=== PATIENT | male | born 1990 | race Caucasian/White ===

== ENCOUNTER 2016-05-09 06:28 | Emergency (ER) | payer MEDICAID, SELFPAY ==
[2016-05-09 08:49] LABS: MEAN CORPUSCULAR HEMOGLOBIN 31.2 pg (27.0-33.0); MEAN CORPUSCULAR HGB CONC 35.7 g/dl (32.0-36.5); MEAN CORPUSCULAR VOLUME 87.4 fl (80.0-96.0); WHITE BLOOD COUNT 7.6 K/mm3 (4.0-10.0)
[2016-05-09 09:10] LABS: ALBUMIN 4.5 GM/DL (3.2-5.2); ALBUMIN/GLOBULIN RATIO 1.25 (1.00-1.93); ALKALINE PHOSPHATASE 100 U/L (45-117); ALT/SGPT 80 U/L (12-78); ANION GAP 13 MEQ/L (8-16); AST/SGOT 38 U/L (15-37); BILIRUBIN,DIRECT < 0.1 MG/DL (0.0-0.2); BILIRUBIN,TOTAL 0.4 MG/DL (0.2-1.0); BLOOD UREA NITROGEN 5 MG/DL (7-18); CALCIUM LEVEL 9.1 MG/DL (8.5-10.1); CARBON DIOXIDE LEVEL 24 MEQ/L (21-32); CHLORIDE LEVEL 104 MEQ/L (98-107); CREATININE FOR GFR 1.03 MG/DL (0.70-1.30); GLOMERULAR FILTRATION RATE > 60.0 (>60); GLUCOSE, FASTING 119 MG/DL (70-105); POTASSIUM SERUM 4.2 MEQ/L (3.5-5.1); SODIUM LEVEL 141 MEQ/L (136-145); TOTAL PROTEIN 8.1 GM/DL (6.4-8.2)
[2016-05-09 09:44] LABS: AMPHETAMINES LEVEL URINE NEGATIVE (NEGATIVE); BENZODIAZEPINES URINE NEGATIVE (NEGATIVE); COCAINE METABOLITE URINE NEGATIVE (NEGATIVE); CONTROL LINE INT CTR LINE PRESENT; METHADONE URINE NEGATIVE (NEGATIVE); OPIATES URINE NEGATIVE (NEGATIVE); TRICYCLIC ANTIDEPRESS URINE NEGATIVE (NEGATIVE)
--- NOTE | 2016-05-09 13:17 | EDDOCDS ---
Nurse's Notes [facility] Name: Blake Crawford Age: 26 yrs Sex: Male : 1990 Arrival Date: 05/09/2016 Time: 06:28 Bed U3 Private MD: Diagnosis: Essential (primary) hypertension-possibly related to ingestion;Alcohol use, unspecified with intoxication Presentation: 05/09 06:37 Presenting complaint: Patient states: He does not remember making comments on Facebook lf1 about wanting to harm himself, states he was drinking heavily (vodka and Mountain Dew) and does not remember much of the evening. Denies SI/HI at this time. Pt brought in on 941 by NICOL Neumann after a friend called concerned about comments patient made on Facebook about wanting to harm himself. Mental Health Triage Level: Level 2: The patient was brought to the ED for evaluation because of a legal pickup order. Adult Sepsis Screening: The patient does not have new or worsening altered mentation. Patient's respiratory rate is less than 22. Systolic blood pressure is greater than 100. Patient has a qSOFA score of 0- Negative Sepsis Screen. Suicide/Homicide risk assessment- The patient admits to and/or has been reported to be having suicidal ideations. Status: Patient is not a services rep or dependent. Transition of care: patient was not received from another setting of care. 06:37 Acuity: MARY Level 3 lf1 06:37 Method Of Arrival: Police Car lf1 Triage Assessment: 06:43 General: Appears in no apparent distress, comfortable, Behavior is cooperative. Pain: lf1 Denies pain. Pt Declines HIV testing. The patient is triaged at the bedside. See Assessment in Nurses Notes section of ED record. Neurological: Level of Consciousness is awake, alert, Oriented to person, place, time. EENT: No deficits noted. Cardiovascular: Chest pain is denied. Respiratory: Respiratory effort is even, unlabored, Denies shortness of breath. GI: Denies nausea, vomiting. Derm: Skin is normal. Musculoskeletal: No deficits noted. Injury Description: No known injury. Historical: - Allergies: No known drug Allergies; - Home Meds: 1. none - PMHx: Prostate problems; - PSHx: none; - Social history: Smoking status: Patient states was never smoker of tobacco. No barriers to communication noted, The patient speaks fluent Citizen Of [place], Speaks appropriately for age, Preferred Language: Citizen Of [place]. - Family history: Not pertinent. - : The pt / caregiver states he / she is not on anticoagulants. Home medication list is obtained from the patient. - Exposure Risk Screening:: None identified. Screenin:46 Screening information is obtained from the patient. Fall risk: No risks identified. lf1 Assistance ADL's: requires no assistance with activities of daily living. Abuse/DV Screen: The patient / caregiver reports he/she is: not in a situation that causes fear, pain or injury. Nutritional screening: No deficits noted. Advance Directives: Currently, there is. Advance Directives: Currently, there is no health care proxy. home support is adequate. Assessment: 06:56 General: Appears in no apparent distress, comfortable, well nourished, well groomed, kas2 Behavior is cooperative, Smells of alcohol. Pain: Denies pain. Neurological: Level of Consciousness is awake, alert, Oriented to person, place, time. Cardiovascular: Rhythm is regular. Respiratory: Airway is patent Respiratory effort is even, unlabored, Respiratory pattern is regular, symmetrical, Breath sounds are clear bilaterally. Derm: Skin is intact, Skin is dry, Skin is pink, warm & dry. Skin temperature is warm. 08:36 Reassessment: Patient alert and cooperative - denies any pain. Very anxious. . kcs 09:04 Reassessment: Patient sitting up on the side of the stretcher - pleasant and kcs cooperative. Cheeks flushed. Denies any pain. Still unable to give urine specimen. IV infusing and patient retaining po water and sherri hector. Security observing.. 11:15 Adult Sepsis Screening: The patient does not have new or worsening altered mentation. ms2 Patient's respiratory rate is less than 22. Systolic blood pressure is greater than 100. Patient has a qSOFA score of 0- Negative Sepsis Screen. General: Appears in no apparent distress, poor eye contact. Behavior is cooperative. Neurological: Level of Consciousness is awake, alert, obeys commands. Respiratory: No deficits noted. Airway is patent Respiratory effort is even, unlabored, Respiratory pattern is regular, symmetrical. GI: Abdomen is obese. Derm: Skin is pink, warm & dry. Musculoskeletal: Range of motion intact in all extremities. 12:05 General: Appears in no apparent distress, Behavior is cooperative. Neurological: No ms2 deficits noted. Respiratory: Respiratory effort is even, unlabored. Derm: Skin is pink, warm & dry. 13:05 Adult Sepsis Screening: The patient does not have new or worsening altered mentation. ms2 Patient's respiratory rate is less than 22. Systolic blood pressure is greater than 100. Patient has a qSOFA score of 0- Negative Sepsis Screen. General: Appears in no apparent distress. Neurological: Level of Consciousness is awake, alert, obeys commands. Respiratory: Airway is patent Respiratory effort is even, unlabored, Respiratory pattern is regular, symmetrical. Derm: Skin is pink, warm & dry. Musculoskeletal: Range of motion intact in all extremities. Mental Health Eval: 06:55 Referral Information: Evaluation referral is generated by a police agency: [facility] on cl 9.41.. The patient was referred for evaluation because Pt allegedly made suicidal comments on Facebook last night, friend contacted Police. Pt states he does not recall making any statements, reports he was intoxicated last night and has no memory of making any threats or comments.. 09:45 Mental health consult is initiated at 09:45. Status: The patient is not a ca services rep or dependent. [facility]: The patient is not an established patient of [facility]. 10:36 Subjective: The patients chief complaint is Pt denies SI or HI, says he does not ca remember making any FB post last night but was highly intoxicated. Was celebrating New 's with friends and roommates. Pt unaware of who called police or why. . 11:35 Subjective: Delusions are denied. Patient's mood is appropriate. Hallucinations are ca denied. Spoke with pt's mother Sherri ([phone]) who states no concerns regarding pt's safety. She confirms that pt has been living with roommates for some time but family is in regular contact with pt. Pt has never been admitted to psychiatric unit and has never been hospitalized. Pt did experience some depressive symptoms after being fired from a job over a year ago for using profanity. However he has been doing well since that time and continues to seek employment. Mother will transport pt to home today. Mental Health history: alcohol abuse, Mental Health Admissions: None. Current Outpatient Mental Health Services: None. Patient presents to Emergency Department with the following symptoms within the past 2 weeks: alcohol abuse. Substance abuse: Pt denies. Mental status exam: Patients appearance is appropriate, Patient's behavior is cooperative, Speech is normal. Affect is appropriate. Mood is appropriate. Hallucinations are denied. Appetite is normal. Memory is fair. Energy level is normal. Content of thought is normal. Thought process is intact. Cognitive level is oriented to person, place, time and situation Patient's insight is fair. Judgement is fair. Rapport with interviewer is good. Suicidal Ideation is denied. Homicidal ideation is denied. Disposition: Medically cleared for disposition by Nataliya Linares MD Psychiatric Consult is deferred per ED physician, Dr Sanchez . DSM-V Differential Diagnosis: Alcohol Intoxication. Narrative: Pt discharged to home with information for follow up. Pt remains calm, pleasant, cooperative. Vital Signs: 06:30 BP 149 / 101; Pulse 148; Resp 20; Pulse Ox 98% ; Height 5 ft. 4 in. (162.56 cm); Pain lf1 0/10; 06:47 Temp 97.7(T); jp4 06:55 Pulse 140; slm 07:03 Pulse 138; lf1 10:15 BP 161 / 107; Pulse 123; Resp 17; Temp 99.2(T); Pulse Ox 99% on R/A; pjf 11:13 BP 189 / 111 LA Sitting (auto/lg); Pulse 120; Resp 20 S; Temp 97.8(O); Pulse Ox 99% on ms2 R/A; 13:14 BP 168 / 118 RA Sitting (man/lg); Pulse 130; Resp 20 S; Temp 98.5(O); Pulse Ox 97% on ms2 R/A; 06:30 Pt reports he has been drinking red bull and mountain dew all night and is very anxious lf1 - 13:14 dr sanchez aware pt o'k for d/c ms2 Vitals: 06:30 Log In time N/A- police car arrival. lf1 ED Course: 06:29 Patient visited by Cecilia Bob. cmb 06:29 Patient moved to Waiting cmb 06:29 Patient moved to [facility] cmb 06:37 Patient visited by Natividad Lynn,TEZ. lf1 06:42 Triage Initiated lf1 06:47 Patient visited by Natividad Lynn,TEZ. lf1 06:47 Patient visited by Audi Cruz. jp4 07:00 Patient visited by Elli Ellis RN. kas2 07:05 Report received from Elli Ellis RN. kcs 07:11 Nataliya Linares MD is Attending Physician. sd1 07:11 Patient visited by Nataliya Linares MD. sd1 07:13 Patient visited by Nii Nevarez Security Aide. pjf 07:16 EKG done. (by ED staff). Reviewed by Nataliya Linares MD. jp4 07:45 Patient visited by Nii Nevarez Security Aide. pjf 07:46 Psych Safety Check: Location: Psych Room. pjf 07:57 Patient visited by Nii Nevarez Security Aide. pjf 08:19 Patient visited by Nii Nevarez Security Aide. pjf 08:30 Inserted saline lock: 20 gauge in right antecubital area The patient tolerated the kcs procedure well. 08:35 Acetaminophen Level Sent. kcs 08:35 Basic Metabolic Profile Sent. kcs 08:35 Complete Blood Count Sent. kcs 08:35 Ethyl Alcohol (ethanol) Sent. kcs 08:35 Liver Profile Sent. kcs 08:35 Thyroid Stimulating Hormone Sent. kcs 08:35 Salicylate Level Sent. kcs 08:36 The patient / caregiver is instructed regarding the plan of care and ED course. kcs 08:47 Patient visited by Nii Nevarez Security Aide. pjf 08:52 [facility] Payment Agreement was scanned into [employer] and attached to record. mm15 09:01 Patient visited by Nii Nevarez Security Aide. pjf 09:04 Patient visited by Josiah Canada PCA. jrd 09:06 Patient visited by Mercy Orr RN. kcs 09:12 Patient name changed from Blake\S\M\S\Ty\S\ to Blake\S\Bean\S\Haven. EDMS 09:14 Patient visited by Josiah Canada PCA. jrd 09:29 Patient visited by Nii Nevarez Security Aide. pjf 09:50 Patient visited by Nii Nevarez Security Aide. pjf 10:15 Patient visited by Nii Nevarez Security Aide. pjf 10:30 Psych Safety Check: Location: Psych Room. Visual Assessment: Cooperative. pjf 10:41 Patient visited by Nii Nevarez Security Aide. pjf 10:57 Patient visited by Nii Nevarez Security Aide. pjf 11:07 Edgar Bill,RN is Primary Nurse. ms2 11:13 Patient visited by Nii Nevarez Security Aide. pjf 11:36 Patient visited by Nii Nevarez Security Aide. pjf 11:48 Patient visited by Nii Nevarez Security Aide. pjf 12:20 Referral List is Referral Physician. sd1 12:20 Referral list, As provided by [facility] is Referral Physician. sd1 12:22 [facility] is Referral Physician. sd1 12:50 Patient visited by Nii Nevarez Security Aide. pjf 13:04 Patient visited by Nii Nevarez Security Aide. pjf 13:05 The patient / caregiver is instructed regarding the plan of care and ED course. ms2 13:05 No procedures done that require assistance. ms2 Administered Medications: 08:36 Drug: NS 0.9% 1000 ml [sodium chloride 0.9 % intravenous solution] Route: IV; Rate: kcs bolus; Site: right antecubital; 09:57 Follow up: IV Status: Completed infusion; IV Intake: 1000ml kcs Intake: 09:57 IV: 1000.00ml; Total: 1000.00ml. kcs Order Results: Lab Order: Acetaminophen Level; SPEC'M 05/09/16 08:32 Test: ACETAMINOPHEN LEVEL; Value: < 2.0; Range: 10.0-30.0; Abnormal: Below low normal; Units: UG/ML; Status: F Lab Order: Basic Metabolic Profile; SPEC'M 05/09/16 08:32 Test: GLUCOSE, FASTING; Value: 119; Range: 70-105; Abnormal: Above high normal; Units: MG/DL; Status: F Test: BLOOD UREA NITROGEN; Value: 5; Range: 7-18; Abnormal: Below low normal; Units: MG/DL; Status: F Test: CREATININE FOR GFR; Value: 1.03; Range: 0.70-1.30; Units: MG/DL; Status: F Test: GLOMERULAR FILTRATION RATE; Value: > 60.0; Range: >60; Status: F Test: SODIUM LEVEL; Value: 141; Range: 136-145; Units: MEQ/L; Status: F Test: POTASSIUM SERUM; Value: 4.2; Range: 3.5-5.1; Units: MEQ/L; Status: F Test: CHLORIDE LEVEL; Value: 104; Range: 98-107; Units: MEQ/L; Status: F Test: CARBON DIOXIDE LEVEL; Value: 24; Range: 21-32; Units: MEQ/L; Status: F Test: ANION GAP; Value: 13; Range: 8-16; Units: MEQ/L; Status: F Test: CALCIUM LEVEL; Value: 9.1; Range: 8.5-10.1; Units: MG/DL; Status: F Test Note: ; Units are mL/min/1.73 m2 Chronic Kidney Disease Staging per NKF: Stage I & II GFR >=60 Normal to Mildly Decreased Stage III GFR 30-59 Moderately Decreased Stage IV GFR 15-29 Severely Decreased Stage V GFR <15 Very Little GFR Left ESRD GFR <15 on 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 Lab Order: Complete Blood Count; [facility]'M 05/09/16 08:32 Test: WHITE BLOOD COUNT; Value: 7.6; Range: 4.0-10.0; Units: K/mm3; Status: F Test: RED BLOOD COUNT; Value: 5.82; Range: 4.30-6.10; Units: M/mm3; Status: F Test: HEMOGLOBIN; Value: 18.2; Range: 14.0-18.0; Abnormal: Above high normal; Units: g/dl; Status: F Test: HEMATOCRIT; Value: 50.9; Range: 42.0-52.0; Units: %; Status: F Test: MEAN CORPUSCULAR VOLUME; Value: 87.4; Range: 80.0-96.0; Units: fl; Status: F Test: MEAN CORPUSCULAR HEMOGLOBIN; Value: 31.2; Range: 27.0-33.0; Units: pg; Status: F Test: MEAN CORPUSCULAR HGB CONC; Value: 35.7; Range: 32.0-36.5; Units: g/dl; Status: F Test: RED CELL DISTRIBUTION WIDTH; Value: 12.0; Range: 11.5-14.5; Units: %; Status: F Test: PLATELET COUNT, AUTOMATED; Value: 278; Range: 150-450; Units: k/mm3; Status: F Lab Order: Drug Eval Toxicology ED Only; SPEC'M 05/09/16 09:11 Test: AMPHETAMINES LEVEL URINE; Value: NEGATIVE; Range: NEGATIVE; Status: F Test: BARBITURATES URINE; Value: NEGATIVE; Range: NEGATIVE; Status: F Test: BENZODIAZEPINES URINE; Value: NEGATIVE; Range: NEGATIVE; Status: F Test: CANNABINOIDS URINE; Value: NEGATIVE; Range: NEGATIVE; Status: F Test: COCAINE METABOLITE URINE; Value: NEGATIVE; Range: NEGATIVE; Status: F Test: METHADONE URINE; Value: NEGATIVE; Range: NEGATIVE; Status: F Test: OPIATES URINE; Value: NEGATIVE; Range: NEGATIVE; Status: F Test: TRICYCLIC ANTIDEPRESS URINE; Value: NEGATIVE; Range: NEGATIVE; Status: F Test Note: ; ALL PRESUMPTIVE POSITIVE FINDINGS ARE UNCONFIRMED NORMAL VALUES THRESHOLD IN NG/ML AMPHETAMINES 1000 METHAMPHETAMINES 1000 BARBITURATES 300 BENZODIAZEPINES 300 CANNABINOIDS (THC) 50 COCAINE METABOLITE 300 METHADONE 300 OPIATES 300 PHENCYCLIDINE 25 TRICYCLIC ANTIDEPRESSANTS 1000 RESULTS ARE FOR MEDICAL PURPOSES ONLY. ALL URINE SPECIMENS WILL BE SAVED FOR 3 DAYS. IF CONFIRMATION OF A PRESUMPTIVE POSTIVE SCREEN RESULT IS DESIRED, CALL CHEMISTRY ([phone]) AND REQUEST URINE TO BE SENT TO REFERENCE LAB. FOR A LIST OF CLOSELY RELATED COMPOUNDS PLEASE CALL THE LAB. Lab Order: Ethyl Alcohol (ethanol); SPEC'M 05/09/16 08:32 Test: ETHYL ALCOHOL (ETHANOL); Value: 0.022; Range: 0.000-0.010; Abnormal: Above high normal; Units: %; Status: F Lab Order: Liver Profile; SPEC'M 05/09/16 08:32 Test: AST/SGOT; Value: 38; Range: 15-37; Abnormal: Above high normal; Units: U/L; Status: F Test: ALT/SGPT; Value: 80; Range: 12-78; Abnormal: Above high normal; Units: U/L; Status: F Test: ALKALINE PHOSPHATASE; Value: 100; Range: 45-117; Units: U/L; Status: F Test: BILIRUBIN,TOTAL; Value: 0.4; Range: 0.2-1.0; Units: MG/DL; Status: F Test: BILIRUBIN,DIRECT; Value: < 0.1; Range: 0.0-0.2; Units: MG/DL; Status: F Test: TOTAL PROTEIN; Value: 8.1; Range: 6.4-8.2; Units: GM/DL; Status: F Test: ALBUMIN; Value: 4.5; Range: 3.2-5.2; Units: GM/DL; Status: F Test: ALBUMIN/GLOBULIN RATIO; Value: 1.25; Range: 1.00-1.93; Status: F Lab Order: Salicylate Level; SPEC'M 05/09/16 08:32 Test: SALICYLATE LEVEL; Value: < 1.7; Range: 5.0-30.0; Abnormal: Below low normal; Units: MG/DL; Status: F Lab Order: Thyroid Stimulating Hormone; SPEC'M 05/09/16 08:32 Test: THYROID STIMULATING HORMONE; Value: 1.220; Range: 0.358-3.740; Units: uIU/ML; Status: F Outcome: 12:21 Discharge ordered by Provider. sd1 13:05 Discharge Assessment: patient administered narcotics - no. The following High Risk ms2 Discharge criteria are identified: None. Discharged to home ambulatory, with parent. Condition: stable. Discharge instructions given to patient, Instructed on discharge instructions, follow up and referral plans. Demonstrated understanding of instructions, Pt was receptive of discharge instructions/ teaching. No special radiology studies were completed. Property sent home with patient. 13:16 Patient left the ED. ms2 Signatures: Dispatcher [employer] EDMS Nataliya Linares MD MD sd1 Mercy Orr RN Edgar Garcia RN RN ms2 Venancio, Delmy, PSA PSA ca Reena, Brad, PSA PSA cl Dionicioendsantos, Nii, Security Aide Rosa Elenaf Natividad LynnRN RN lf1 Cecilia Bob Marlynn mm15 Zoey Ricks,TAPE LIBRARIAN TAPE LIBRARIAN slAudi Morales jp4 Josiah Canada, STEEL RULE INSPECTOR STEEL RULE INSPECTOR d Elli Ellis,RN RN kas2 Corrections: (The following items were deleted from the chart) 13:14 13:05 Respiratory: Airway is compromised Respiratory effort is even, unlabored, ms2 Respiratory pattern is regular, symmetrical, ms2 MTDD
--- NOTE | 2016-05-09 13:17 | EDDOCDS ---
Physician Documentation [facility] Name: Blake Crawford Age: 26 yrs Sex: Male : 1990 Arrival Date: 05/09/2016 Time: 06:28 Bed [facility] Private MD: Disposition: 05/09/16 12:21 Discharged to Home/Self Care. Impression: Essential (primary) hypertension - possibly related to ingestion, Alcohol use, unspecified with intoxication. - Condition is Stable. - Discharge Instructions: Alcohol Intoxication, Hypertension. - Medication Reconciliation, Local Pharmacy Hours form. - Follow up: Referral List; When: Call to arrange an appointment. Follow up: Referral list, As provided by [facility]; When: Call to arrange an appointment. Follow up: [facility]; When: Call to arrange an appointment. - Problem is new. - Symptoms have improved. Historical: - Allergies: No known drug Allergies; - Home Meds: 1. none - PMHx: Prostate problems; - PSHx: none; - Social history: Smoking status: Patient states was never smoker of tobacco. No barriers to communication noted, The patient speaks fluent [place], Speaks appropriately for age, Preferred Language: [place]ian. - Family history: Not pertinent. - : The pt / caregiver states he / she is not on anticoagulants. Home medication list is obtained from the patient. - Exposure Risk Screening:: None identified. Vital Signs: 05/09 06:30 BP 149 / 101; Pulse 148; Resp 20; Pulse Ox 98% ; Height 5 ft. 4 in. (162.56 cm); Pain lf1 0/10; 06:47 Temp 97.7(T); jp4 06:55 Pulse 140; slm 07:03 Pulse 138; lf1 10:15 BP 161 / 107; Pulse 123; Resp 17; Temp 99.2(T); Pulse Ox 99% on R/A; pjf 11:13 BP 189 / 111 LA Sitting (auto/lg); Pulse 120; Resp 20 S; Temp 97.8(O); Pulse Ox 99% on ms2 R/A; 13:14 BP 168 / 118 RA Sitting (man/lg); Pulse 130; Resp 20 S; Temp 98.5(O); Pulse Ox 97% on ms2 R/A; 06:30 Pt reports he has been drinking red bull and mountain dew all night and is very anxious lf1 - 13:14 dr sanchez aware pt o'k for d/c ms2 MDM: 07:05 ECG WITH READING ER PHYS+CARDIAG ordered. EDMS 07:19 Consult PFS/PSA/Regional Sales Coordinator ordered. sd1 07:19 Consult PFS/PSA/Regional Sales Coordinator: Patient's case requires discussion with on-call sd1 Psychiatrist ordered. 07:19 PSA/PFS to call Nursing Rent Collector, to enter patient data on [place] Safe Act if patient sd1 involuntarily admitted or transferred for SI or HI ordered. 07:19 Confirm accurate psychiatric medication list and times of last dosage ordered. sd1 07:19 Detain Pt Until Medically/PFS Cleared ordered. sd1 07:19 NS 0.9% 1000 ml IV at bolus once ordered. sd1 07:19 Acetaminophen Level Ordered. EDMS 07:19 Basic Metabolic Profile Ordered. EDMS 07:19 Complete Blood Count Ordered. EDMS 07:19 Drug Eval Toxicology ED Only Ordered. EDMS 07:20 Ethyl Alcohol (ethanol) Ordered. EDMS 07:20 Liver Profile Ordered. EDMS 07:20 Salicylate Level Ordered. EDMS 07:20 Thyroid Stimulating Hormone Ordered. EDMS 08:48 Financial registration complete. mm15 08:52 [facility] [place] Agreement was scanned into [employer] and attached to record. mm15 09:56 Consult PFS/PSA/Regional Sales Coordinator complete. ca 10:47 Acetaminophen Level Reviewed. sd1 10:47 Basic Metabolic Profile Reviewed. sd1 10:47 Complete Blood Count Reviewed. sd1 10:47 Ethyl Alcohol (ethanol) Reviewed. sd1 10:47 Liver Profile Reviewed. sd1 10:47 Salicylate Level Reviewed. sd1 10:47 Drug Eval Toxicology ED Only Reviewed. sd1 10:47 Thyroid Stimulating Hormone Reviewed. sd1 10:47 Recheck Vital Signs, perform reassessment and enter into [employer] ordered. sd1 11:10 REGULAR DIET PLASTIC BOYLE+DIET ordered. EDMS 11:34 PSA/PFS to call Nursing Rent Collector, to enter patient data [place] Safe [place] if patient ca involuntarily admitted or transferred for SI or HI complete. 11:35 Consult PFS/PSA/Regional Sales Coordinator: Patient's case requires discussion with on-call ca Psychiatrist complete. Administered Medications: 08:36 Drug: NS 0.9% 1000 ml [sodium chloride 0.9 % intravenous solution] Route: IV; Rate: kcs bolus; Site: right antecubital; 09:57 Follow up: IV Status: Completed infusion; IV Intake: 1000ml kcs Signatures: Dispatcher [employer] Nataliya Roy MD MD sd1 Edgar Bill RN RN ms2 Delmy Craft, PSA PSA ca Natividad Lynn RN RN lf1 Courtney Beltre mm15 Mercy Orr RN kcs The chart was reviewed and I authenticate all verbal orders and agree with the evaluation and treatment provided.Attachments: 08:52 [facility] Payment Agreement mm15 MTDD
--- NOTE | 2016-05-09 19:56 | ECGEPIP ---
Stationary ECG Study [facility] - ED Test Date: 2016-05-09 Pat Name: RAY TIERNEY Department: Room: - Gender: M Applied Technologist: satinder : 1990 Requested By: ARLINE Garcia Order Number: [id number] Reading MD: Nataliya Linares Measurements Intervals [place] Rate: 127 P: 43 CA: 127 QRS: 51 QRSD: 109 T: 33 QT: 335 QTc: 488 Interpretive Statements SINUS TACHYCARDIA NONSPECIFIC T-WAVE ABNORMALITY ABNORMAL RHYTHM ECG NO PRIOR FOR COMPARISON Electronically Signed On 05-09-2016 19:56:14 EST by Nataliya Linares
--- NOTE | 2016-05-11 14:17 | EDDOCDS ---
Physician Documentation [facility] Name: Blake Crawford Age: 26 yrs Sex: Male : 1990 Arrival Date: 05/09/2016 Time: 06:28 Bed [facility] Private MD: Disposition: 05/09/16 12:21 Discharged to Home/Self Care. Impression: Essential (primary) hypertension - possibly related to ingestion, Alcohol use, unspecified with intoxication. - Condition is Stable. - Discharge Instructions: Alcohol Intoxication, Hypertension. - Medication Reconciliation, Local Pharmacy Hours form. - Follow up: Referral List; When: Call to arrange an appointment. Follow up: Referral list, As provided by PFS; When: Call to arrange an appointment. Follow up: [facility]; When: Call to arrange an appointment. - Problem is new. - Symptoms have improved. Historical: - Allergies: No known drug Allergies; - Home Meds: 1. none - PMHx: Prostate problems; - PSHx: none; - Social history: Smoking status: Patient states was never smoker of tobacco. No barriers to communication noted, The patient speaks fluent German, Speaks appropriately for age, Preferred Language: German. - Family history: Not pertinent. - : The pt / caregiver states he / she is not on anticoagulants. Home medication list is obtained from the patient. - Exposure Risk Screening:: None identified. Vital Signs: 05/09 06:30 BP 149 / 101; Pulse 148; Resp 20; Pulse Ox 98% ; Height 5 ft. 4 in. (162.56 cm); Pain lf1 0/10; 06:47 Temp 97.7(T); jp4 06:55 Pulse 140; slm 07:03 Pulse 138; lf1 10:15 BP 161 / 107; Pulse 123; Resp 17; Temp 99.2(T); Pulse Ox 99% on R/A; pjf 11:13 BP 189 / 111 LA Sitting (auto/lg); Pulse 120; Resp 20 S; Temp 97.8(O); Pulse Ox 99% on ms2 R/A; 13:14 BP 168 / 118 RA Sitting (man/lg); Pulse 130; Resp 20 S; Temp 98.5(O); Pulse Ox 97% on ms2 R/A; 06:30 Pt reports he has been drinking red bull and mountain dew all night and is very anxious lf1 - 13:14 dr sanchez aware pt o'k for d/c ms2 MDM: 07:05 ECG WITH READING ER PHYS+CARDIAG ordered. EDMS 07:19 Consult PFS/PSA/Type Bar And Segment Assembler ordered. sd1 07:19 Consult PFS/PSA/Type Bar And Segment Assembler: Patient's case requires discussion with on-call sd1 Psychiatrist ordered. 07:19 PSA/PFS to call Nursing Color Coater, to enter patient data on [place] Safe [place] if patient sd1 involuntarily admitted or transferred for SI or HI ordered. 07:19 Confirm accurate psychiatric medication list and times of last dosage ordered. sd1 07:19 Detain Pt Until Medically/PFS Cleared ordered. sd1 07:19 NS 0.9% 1000 ml IV at bolus once ordered. sd1 07:19 Acetaminophen Level Ordered. EDMS 07:19 Basic Metabolic Profile Ordered. EDMS 07:19 Complete Blood Count Ordered. EDMS 07:19 Drug Eval Toxicology ED Only Ordered. EDMS 07:20 Ethyl Alcohol (ethanol) Ordered. EDMS 07:20 Liver Profile Ordered. EDMS 07:20 Salicylate Level Ordered. EDMS 07:20 Thyroid Stimulating Hormone Ordered. EDMS 08:48 Financial registration complete. mm15 08:52 PENDING SALE TO [facility] Payment Agreement was scanned into UXPin and attached to record. mm15 09:56 Consult PFS/PSA/Type Bar And Segment Assembler complete. ca 10:47 Acetaminophen Level Reviewed. sd1 10:47 Basic Metabolic Profile Reviewed. sd1 10:47 Complete Blood Count Reviewed. sd1 10:47 Ethyl Alcohol (ethanol) Reviewed. sd1 10:47 Liver Profile Reviewed. sd1 10:47 Salicylate Level Reviewed. sd1 10:47 Drug Eval Toxicology ED Only Reviewed. sd1 10:47 Thyroid Stimulating Hormone Reviewed. sd1 10:47 Recheck Vital Signs, perform reassessment and enter into MedHost ordered. sd1 11:10 REGULAR DIET PLASTIC BOYLE+DIET ordered. EDMS 11:34 PSA/PFS to call Nursing Color Coater, to enter patient data [place] Safe [place] if patient ca involuntarily admitted or transferred for SI or HI complete. 11:35 Consult PFS/PSA/Type Bar And Segment Assembler: Patient's case requires discussion with on-call ca Psychiatrist complete. 05/10 11:59 T-Sheet-- Draft Copy was scanned into UXPin and attached to record. gb 11:59 ECG/EKG was scanned into UXPin and attached to record. gb Administered Medications: 05/09 08:36 Drug: NS 0.9% 1000 ml [sodium chloride 0.9 % intravenous solution] Route: IV; Rate: kcs bolus; Site: right antecubital; 09:57 Follow up: IV Status: Completed infusion; IV Intake: 1000ml kcs Signatures: Dispatcher MedHost EDNataliya Taylor MD MD sd1 Edgar BillRN RN ms2 Delmy Craft, PSA PSA ca Tamie Milan, Reg Reg gb Natividad Lynn RN RN lf1 Courtney Beltre mm15 Mercy Orr RN kcs The chart was reviewed and I authenticate all verbal orders and agree with the evaluation and treatment provided.Attachments: 08:52 PENDING SALE TO [facility] Payment Agreement mm15 05/10 11:59 T-Sheet-- Draft Copy gb 11:59 ECG/EKG Chart Complete MTDD
--- NOTE | 2016-05-11 14:17 | EDDOCDS ---
Nurse's Notes [facility] Name: Blake Crawford Age: 26 yrs Sex: Male : 1990 Arrival Date: 05/09/2016 Time: 06:28 Bed U3 Private MD: Diagnosis: Essential (primary) hypertension-possibly related to ingestion;Alcohol use, unspecified with intoxication Presentation: 05/09 06:37 Presenting complaint: Patient states: He does not remember making comments on Facebook lf1 about wanting to harm himself, states he was drinking heavily (vodka and Mountain Dew) and does not remember much of the evening. Denies SI/HI at this time. Pt brought in on 941 by NICOL Neumann after a friend called concerned about comments patient made on Facebook about wanting to harm himself. Mental Health Triage Level: Level 2: The patient was brought to the ED for evaluation because of a legal pickup order. Adult Sepsis Screening: The patient does not have new or worsening altered mentation. Patient's respiratory rate is less than 22. Systolic blood pressure is greater than 100. Patient has a qSOFA score of 0- Negative Sepsis Screen. Suicide/Homicide risk assessment- The patient admits to and/or has been reported to be having suicidal ideations. Status: Patient is not a personal service workers or dependent. Transition of care: patient was not received from another setting of care. 06:37 Acuity: MARY Level 3 lf1 06:37 Method Of Arrival: Police Car lf1 Triage Assessment: 06:43 General: Appears in no apparent distress, comfortable, Behavior is cooperative. Pain: lf1 Denies pain. Pt Declines HIV testing. The patient is triaged at the bedside. See Assessment in Nurses Notes section of ED record. Neurological: Level of Consciousness is awake, alert, Oriented to person, place, time. EENT: No deficits noted. Cardiovascular: Chest pain is denied. Respiratory: Respiratory effort is even, unlabored, Denies shortness of breath. GI: Denies nausea, vomiting. Derm: Skin is normal. Musculoskeletal: No deficits noted. Injury Description: No known injury. Historical: - Allergies: No known drug Allergies; - Home Meds: 1. none - PMHx: Prostate problems; - PSHx: none; - Social history: Smoking status: Patient states was never smoker of tobacco. No barriers to communication noted, The patient speaks fluent Bruneian, Speaks appropriately for age, Preferred Language: Bruneian. - Family history: Not pertinent. - : The pt / caregiver states he / she is not on anticoagulants. Home medication list is obtained from the patient. - Exposure Risk Screening:: None identified. Screenin:46 Screening information is obtained from the patient. Fall risk: No risks identified. lf1 Assistance ADL's: requires no assistance with activities of daily living. Abuse/DV Screen: The patient / caregiver reports he/she is: not in a situation that causes fear, pain or injury. Nutritional screening: No deficits noted. Advance Directives: Currently, there is. Advance Directives: Currently, there is no health care proxy. home support is adequate. Assessment: 06:56 General: Appears in no apparent distress, comfortable, well nourished, well groomed, kas2 Behavior is cooperative, Smells of alcohol. Pain: Denies pain. Neurological: Level of Consciousness is awake, alert, Oriented to person, place, time. Cardiovascular: Rhythm is regular. Respiratory: Airway is patent Respiratory effort is even, unlabored, Respiratory pattern is regular, symmetrical, Breath sounds are clear bilaterally. Derm: Skin is intact, Skin is dry, Skin is pink, warm & dry. Skin temperature is warm. 08:36 Reassessment: Patient alert and cooperative - denies any pain. Very anxious. . kcs 09:04 Reassessment: Patient sitting up on the side of the stretcher - pleasant and kcs cooperative. Cheeks flushed. Denies any pain. Still unable to give urine specimen. IV infusing and patient retaining po water and sherri hector. Security observing.. 11:15 Adult Sepsis Screening: The patient does not have new or worsening altered mentation. ms2 Patient's respiratory rate is less than 22. Systolic blood pressure is greater than 100. Patient has a qSOFA score of 0- Negative Sepsis Screen. General: Appears in no apparent distress, poor eye contact. Behavior is cooperative. Neurological: Level of Consciousness is awake, alert, obeys commands. Respiratory: No deficits noted. Airway is patent Respiratory effort is even, unlabored, Respiratory pattern is regular, symmetrical. GI: Abdomen is obese. Derm: Skin is pink, warm & dry. Musculoskeletal: Range of motion intact in all extremities. 12:05 General: Appears in no apparent distress, Behavior is cooperative. Neurological: No ms2 deficits noted. Respiratory: Respiratory effort is even, unlabored. Derm: Skin is pink, warm & dry. 13:05 Adult Sepsis Screening: The patient does not have new or worsening altered mentation. ms2 Patient's respiratory rate is less than 22. Systolic blood pressure is greater than 100. Patient has a qSOFA score of 0- Negative Sepsis Screen. General: Appears in no apparent distress. Neurological: Level of Consciousness is awake, alert, obeys commands. Respiratory: Airway is patent Respiratory effort is even, unlabored, Respiratory pattern is regular, symmetrical. Derm: Skin is pink, warm & dry. Musculoskeletal: Range of motion intact in all extremities. Mental Health Eval: 06:55 Referral Information: Evaluation referral is generated by a police agency: [facility] on cl 9.41.. The patient was referred for evaluation because Pt allegedly made suicidal comments on Facebook last night, friend contacted Police. Pt states he does not recall making any statements, reports he was intoxicated last night and has no memory of making any threats or comments.. 09:45 Mental health consult is initiated at 09:45. Status: The patient is not a ca personal service workers or dependent. [facility] Behavioral Health: The patient is not an established patient of [facility] Behavioral Health. 10:36 Subjective: The patients chief complaint is Pt denies SI or HI, says he does not ca remember making any FB post last night but was highly intoxicated. Was celebrating New 's with friends and roommates. Pt unaware of who called police or why. . 11:35 Subjective: Delusions are denied. Patient's mood is appropriate. Hallucinations are ca denied. Spoke with pt's mother Sherri ([phone]) who states no concerns regarding pt's safety. She confirms that pt has been living with roommates for some time but family is in regular contact with pt. Pt has never been admitted to psychiatric unit and has never been hospitalized. Pt did experience some depressive symptoms after being fired from a job over a year ago for using profanity. However he has been doing well since that time and continues to seek employment. Mother will transport pt to home today. Mental Health history: alcohol abuse, Mental Health Admissions: None. Current Outpatient Mental Health Services: None. Patient presents to Emergency Department with the following symptoms within the past 2 weeks: alcohol abuse. Substance abuse: Pt denies. Mental status exam: Patients appearance is appropriate, Patient's behavior is cooperative, Speech is normal. Affect is appropriate. Mood is appropriate. Hallucinations are denied. Appetite is normal. Memory is fair. Energy level is normal. Content of thought is normal. Thought process is intact. Cognitive level is oriented to person, place, time and situation Patient's insight is fair. Judgement is fair. Rapport with interviewer is good. Suicidal Ideation is denied. Homicidal ideation is denied. Disposition: Medically cleared for disposition by Nataliya Linares MD Psychiatric Consult is deferred per ED physician, Dr Sanchez . DSM-V Differential Diagnosis: Alcohol Intoxication. Narrative: Pt discharged to home with information for follow up. Pt remains calm, pleasant, cooperative. Vital Signs: 06:30 BP 149 / 101; Pulse 148; Resp 20; Pulse Ox 98% ; Height 5 ft. 4 in. (162.56 cm); Pain lf1 0/10; 06:47 Temp 97.7(T); jp4 06:55 Pulse 140; slm 07:03 Pulse 138; lf1 10:15 BP 161 / 107; Pulse 123; Resp 17; Temp 99.2(T); Pulse Ox 99% on R/A; pjf 11:13 BP 189 / 111 LA Sitting (auto/lg); Pulse 120; Resp 20 S; Temp 97.8(O); Pulse Ox 99% on ms2 R/A; 13:14 BP 168 / 118 RA Sitting (man/lg); Pulse 130; Resp 20 S; Temp 98.5(O); Pulse Ox 97% on ms2 R/A; 06:30 Pt reports he has been drinking red bull and mountain dew all night and is very anxious lf1 - 13:14 dr sanchez aware pt o'k for d/c ms2 Vitals: 06:30 Log In time N/A- police car arrival. lf1 ED Course: 06:29 Patient visited by Cecilia Bob. cmb 06:29 Patient moved to Waiting cmb 06:29 Patient moved to RUST cmb 06:37 Patient visited by Natividad Lynn,TEZ. lf1 06:42 Triage Initiated lf1 06:47 Patient visited by Natividad Lynn,TEZ. lf1 06:47 Patient visited by Audi Cruz. jp4 07:00 Patient visited by Elli Ellis RN. kas2 07:05 Report received from Elli Ellis RN. kcs 07:11 Nataliya Linares MD is Attending Physician. sd1 07:11 Patient visited by Nataliya Linares MD. sd1 07:13 Patient visited by Nii Nevarez Security Aide. pjf 07:16 EKG done. (by ED staff). Reviewed by Nataliya Linares MD. jp4 07:45 Patient visited by Nii Nevarez Security Aide. pjf 07:46 Psych Safety Check: Location: Psych Room. pjf 07:57 Patient visited by Nii Nevarez Security Aide. pjf 08:19 Patient visited by Nii Nevarez Security Aide. pjf 08:30 Inserted saline lock: 20 gauge in right antecubital area The patient tolerated the kcs procedure well. 08:35 Acetaminophen Level Sent. kcs 08:35 Basic Metabolic Profile Sent. kcs 08:35 Complete Blood Count Sent. kcs 08:35 Ethyl Alcohol (ethanol) Sent. kcs 08:35 Liver Profile Sent. kcs 08:35 Thyroid Stimulating Hormone Sent. kcs 08:35 Salicylate Level Sent. kcs 08:36 The patient / caregiver is instructed regarding the plan of care and ED course. kcs 08:47 Patient visited by Nii Nevarez Security Aide. pjf 08:52 [facility] Payment Agreement was scanned into Ink361 and attached to record. mm15 09:01 Patient visited by Nii Nevarez Security Aide. pjf 09:04 Patient visited by Josiah Canada PCA. jrd 09:06 Patient visited by Mercy Orr RN. kcs 09:12 Patient name changed from Blake\S\M\S\[place]\S\ to Blake\S\Bean\S\Ty. EDMS 09:14 Patient visited by Josiah Canada PCA. jrd 09:29 Patient visited by Nii Nevarez Security Aide. pjf 09:50 Patient visited by Nii Nevarez Security Aide. pjf 10:15 Patient visited by Nii Nevarez Security Aide. pjf 10:30 Psych Safety Check: Location: Psych Room. Visual Assessment: Cooperative. pjf 10:41 Patient visited by Nii Nevarez Security Aide. pjf 10:57 Patient visited by Nii Nevarez Security Aide. pjf 11:07 Edgar Bill,RN is Primary Nurse. ms2 11:13 Patient visited by Nii Nevarez Security Aide. pjf 11:36 Patient visited by Nii Nevarez Security Aide. pjf 11:48 Patient visited by Nii Nevarez Security Aide. pjf 12:20 Referral List is Referral Physician. sd1 12:20 Referral list, As provided by PFS is Referral Physician. sd1 12:22 [facility] is Referral Physician. sd1 12:50 Patient visited by Nii Nevarez Security Aide. pjf 13:04 Patient visited by Nii Nevarez Security Aide. pjf 13:05 The patient / caregiver is instructed regarding the plan of care and ED course. ms2 13:05 No procedures done that require assistance. ms2 20:25 EKG-ADULT Returned. EDMS 05/10 11:59 T-Sheet-- Draft Copy was scanned into Ink361 and attached to record. gb 11:59 ECG/EKG was scanned into Ink361 and attached to record. gb Administered Medications: 05/09 08:36 Drug: NS 0.9% 1000 ml [sodium chloride 0.9 % intravenous solution] Route: IV; Rate: kcs bolus; Site: right antecubital; 09:57 Follow up: IV Status: Completed infusion; IV Intake: 1000ml kcs Intake: 09:57 IV: 1000.00ml; Total: 1000.00ml. kcs Order Results: Lab Order: Acetaminophen Level; SPEC'M 05/09/16 08:32 Test: ACETAMINOPHEN LEVEL; Value: < 2.0; Range: 10.0-30.0; Abnormal: Below low normal; Units: UG/ML; Status: F Lab Order: Basic Metabolic Profile; SPEC'M 05/09/16 08:32 Test: GLUCOSE, FASTING; Value: 119; Range: 70-105; Abnormal: Above high normal; Units: MG/DL; Status: F Test: BLOOD UREA NITROGEN; Value: 5; Range: 7-18; Abnormal: Below low normal; Units: MG/DL; Status: F Test: CREATININE FOR GFR; Value: 1.03; Range: 0.70-1.30; Units: MG/DL; Status: F Test: GLOMERULAR FILTRATION RATE; Value: > 60.0; Range: >60; Status: F Test: SODIUM LEVEL; Value: 141; Range: 136-145; Units: MEQ/L; Status: F Test: POTASSIUM SERUM; Value: 4.2; Range: 3.5-5.1; Units: MEQ/L; Status: F Test: CHLORIDE LEVEL; Value: 104; Range: 98-107; Units: MEQ/L; Status: F Test: CARBON DIOXIDE LEVEL; Value: 24; Range: 21-32; Units: MEQ/L; Status: F Test: ANION GAP; Value: 13; Range: 8-16; Units: MEQ/L; Status: F Test: CALCIUM LEVEL; Value: 9.1; Range: 8.5-10.1; Units: MG/DL; Status: F Test Note: ; Units are mL/min/1.73 m2 Chronic Kidney Disease Staging per NKF: Stage I & II GFR >=60 Normal to Mildly Decreased Stage III GFR 30-59 Moderately Decreased Stage IV GFR 15-29 Severely Decreased Stage V GFR <15 Very Little GFR Left ESRD GFR <15 on CLIENT SERVICE COORDINATOR Lab Order: Complete Blood Count; [facility]' 05/09/16 08:32 Test: WHITE BLOOD COUNT; Value: 7.6; Range: 4.0-10.0; Units: K/mm3; Status: F Test: RED BLOOD COUNT; Value: 5.82; Range: 4.30-6.10; Units: M/mm3; Status: F Test: HEMOGLOBIN; Value: 18.2; Range: 14.0-18.0; Abnormal: Above high normal; Units: g/dl; Status: F Test: HEMATOCRIT; Value: 50.9; Range: 42.0-52.0; Units: %; Status: F Test: MEAN CORPUSCULAR VOLUME; Value: 87.4; Range: 80.0-96.0; Units: fl; Status: F Test: MEAN CORPUSCULAR HEMOGLOBIN; Value: 31.2; Range: 27.0-33.0; Units: pg; Status: F Test: MEAN CORPUSCULAR HGB CONC; Value: 35.7; Range: 32.0-36.5; Units: g/dl; Status: F Test: RED CELL DISTRIBUTION WIDTH; Value: 12.0; Range: 11.5-14.5; Units: %; Status: F Test: PLATELET COUNT, AUTOMATED; Value: 278; Range: 150-450; Units: k/mm3; Status: F Lab Order: Drug Eval Toxicology ED Only; SPEC'M 05/09/16 09:11 Test: AMPHETAMINES LEVEL URINE; Value: NEGATIVE; Range: NEGATIVE; Status: F Test: BARBITURATES URINE; Value: NEGATIVE; Range: NEGATIVE; Status: F Test: BENZODIAZEPINES URINE; Value: NEGATIVE; Range: NEGATIVE; Status: F Test: CANNABINOIDS URINE; Value: NEGATIVE; Range: NEGATIVE; Status: F Test: COCAINE METABOLITE URINE; Value: NEGATIVE; Range: NEGATIVE; Status: F Test: METHADONE URINE; Value: NEGATIVE; Range: NEGATIVE; Status: F Test: OPIATES URINE; Value: NEGATIVE; Range: NEGATIVE; Status: F Test: TRICYCLIC ANTIDEPRESS URINE; Value: NEGATIVE; Range: NEGATIVE; Status: F Test Note: ; ALL PRESUMPTIVE POSITIVE FINDINGS ARE UNCONFIRMED NORMAL VALUES THRESHOLD IN NG/ML AMPHETAMINES 1000 METHAMPHETAMINES 1000 BARBITURATES 300 BENZODIAZEPINES 300 CANNABINOIDS (THC) 50 COCAINE METABOLITE 300 METHADONE 300 OPIATES 300 PHENCYCLIDINE 25 TRICYCLIC ANTIDEPRESSANTS 1000 RESULTS ARE FOR MEDICAL PURPOSES ONLY. ALL URINE SPECIMENS WILL BE SAVED FOR 3 DAYS. IF CONFIRMATION OF A PRESUMPTIVE POSTIVE SCREEN RESULT IS DESIRED, CALL CHEMISTRY ([phone]) AND REQUEST URINE TO BE SENT TO REFERENCE LAB. FOR A LIST OF CLOSELY RELATED COMPOUNDS PLEASE CALL THE LAB. Lab Order: Ethyl Alcohol (ethanol); SPEC'M 05/09/16 08:32 Test: ETHYL ALCOHOL (ETHANOL); Value: 0.022; Range: 0.000-0.010; Abnormal: Above high normal; Units: %; Status: F Lab Order: Liver Profile; SPEC'M 05/09/16 08:32 Test: AST/SGOT; Value: 38; Range: 15-37; Abnormal: Above high normal; Units: U/L; Status: F Test: ALT/SGPT; Value: 80; Range: 12-78; Abnormal: Above high normal; Units: U/L; Status: F Test: ALKALINE PHOSPHATASE; Value: 100; Range: 45-117; Units: U/L; Status: F Test: BILIRUBIN,TOTAL; Value: 0.4; Range: 0.2-1.0; Units: MG/DL; Status: F Test: BILIRUBIN,DIRECT; Value: < 0.1; Range: 0.0-0.2; Units: MG/DL; Status: F Test: TOTAL PROTEIN; Value: 8.1; Range: 6.4-8.2; Units: GM/DL; Status: F Test: ALBUMIN; Value: 4.5; Range: 3.2-5.2; Units: GM/DL; Status: F Test: ALBUMIN/GLOBULIN RATIO; Value: 1.25; Range: 1.00-1.93; Status: F Lab Order: Salicylate Level; SPEC'M 05/09/16 08:32 Test: SALICYLATE LEVEL; Value: < 1.7; Range: 5.0-30.0; Abnormal: Below low normal; Units: MG/DL; Status: F Lab Order: Thyroid Stimulating Hormone; SPEC'M 05/09/16 08:32 Test: THYROID STIMULATING HORMONE; Value: 1.220; Range: 0.358-3.740; Units: uIU/ML; Status: F Radiology Order: EKG-ADULT Test: EKG-ADULT REASON FOR EXAMINATION: Tachy; Stationary ECG Study; [facility] - ED; ; Test Date: 2016-05-09; Pat Name: [facility] Department:; Room: -; Gender: Guest Attendant: satinder; : 1990 Requested By: ARLINE Garcia; Order Number: [id number] Reading MD: Nataliya Linares; Measurements; Intervals [place]; Rate: 127 P: 43; ME: 127 QRS: 51; QRSD: 109 T: 33; QT: 335; QTc: 488; Interpretive Statements; SINUS TACHYCARDIA; NONSPECIFIC T-WAVE ABNORMALITY; ABNORMAL RHYTHM ECG; NO PRIOR FOR COMPARISON; Electronically Signed On 05-09-2016 19:56:14 EST by Nataliya Linares; Outcome: 12:21 Discharge ordered by Provider. sd1 13:05 Discharge Assessment: patient administered narcotics - no. The following High Risk ms2 Discharge criteria are identified: None. Discharged to home ambulatory, with parent. Condition: stable. Discharge instructions given to patient, Instructed on discharge instructions, follow up and referral plans. Demonstrated understanding of instructions, Pt was receptive of discharge instructions/ teaching. No special radiology studies were completed. Property sent home with patient. 13:16 Patient left the ED. ms2 Signatures: Dispatcher MedHost EDMS Nataliya Linares MD MD sd1 Mercy Orr, RN RN kcs Edgar Bill RN RN ms2 Venancio, Delmy, PSA PSA ca Reena, Brad, PSA PSA cl Barnhardt, Tamie, Reg Reg gb Ferendzo, Nii, Security Aide Rosa Elenaf Natividad LynnRN RN lf1 Cecilia Bob Marlynn mm15 Zoey Ricks,TEXTILE COLORIST FORMULATOR TEXTILE COLORIST FORMULATOR slm [place], Audi jp4 Josiah Canada, SHORE WORKER SHORE WORKER d Elli EllisRN RN kas2 Corrections: (The following items were deleted from the chart) 13:14 13:05 Respiratory: Airway is compromised Respiratory effort is even, unlabored, ms2 Respiratory pattern is regular, symmetrical, ms2 Chart Complete MTDD
--- NOTE | 2016-05-11 14:17 | EDDOCDS ---
Physician Documentation [facility] Name: Blake Crawford Age: 26 yrs Sex: Male : 1990 Arrival Date: 05/09/2016 Time: 06:28 Bed [facility] Private MD: Disposition: 05/09/16 12:21 Discharged to Home/Self Care. Impression: Essential (primary) hypertension - possibly related to ingestion, Alcohol use, unspecified with intoxication. - Condition is Stable. - Discharge Instructions: Alcohol Intoxication, Hypertension. - Medication Reconciliation, Local Pharmacy Hours form. - Follow up: Referral List; When: Call to arrange an appointment. Follow up: Referral list, As provided by PFS; When: Call to arrange an appointment. Follow up: [facility]; When: Call to arrange an appointment. - Problem is new. - Symptoms have improved. Historical: - Allergies: No known drug Allergies; - Home Meds: 1. none - PMHx: Prostate problems; - PSHx: none; - Social history: Smoking status: Patient states was never smoker of tobacco. No barriers to communication noted, The patient speaks fluent Burmese, Speaks appropriately for age, Preferred Language: Burmese. - Family history: Not pertinent. - : The pt / caregiver states he / she is not on anticoagulants. Home medication list is obtained from the patient. - Exposure Risk Screening:: None identified. Vital Signs: 05/09 06:30 BP 149 / 101; Pulse 148; Resp 20; Pulse Ox 98% ; Height 5 ft. 4 in. (162.56 cm); Pain lf1 0/10; 06:47 Temp 97.7(T); jp4 06:55 Pulse 140; slm 07:03 Pulse 138; lf1 10:15 BP 161 / 107; Pulse 123; Resp 17; Temp 99.2(T); Pulse Ox 99% on R/A; pjf 11:13 BP 189 / 111 LA Sitting (auto/lg); Pulse 120; Resp 20 S; Temp 97.8(O); Pulse Ox 99% on ms2 R/A; 13:14 BP 168 / 118 RA Sitting (man/lg); Pulse 130; Resp 20 S; Temp 98.5(O); Pulse Ox 97% on ms2 R/A; 06:30 Pt reports he has been drinking red bull and mountain dew all night and is very anxious lf1 - 13:14 dr sanchez aware pt o'k for d/c ms2 MDM: 07:05 ECG WITH READING ER PHYS+CARDIAG ordered. EDMS 07:19 Consult PFS/PSA/Research Epidemiologist ordered. sd1 07:19 Consult PFS/PSA/Research Epidemiologist: Patient's case requires discussion with on-call sd1 Psychiatrist ordered. 07:19 PSA/PFS to call Nursing Early Learning Teacher, to enter patient data on [place] Safe Act if patient sd1 involuntarily admitted or transferred for SI or HI ordered. 07:19 Confirm accurate psychiatric medication list and times of last dosage ordered. sd1 07:19 Detain Pt Until Medically/PFS Cleared ordered. sd1 07:19 NS 0.9% 1000 ml IV at bolus once ordered. sd1 07:19 Acetaminophen Level Ordered. EDMS 07:19 Basic Metabolic Profile Ordered. EDMS 07:19 Complete Blood Count Ordered. EDMS 07:19 Drug Eval Toxicology ED Only Ordered. EDMS 07:20 Ethyl Alcohol (ethanol) Ordered. EDMS 07:20 Liver Profile Ordered. EDMS 07:20 Salicylate Level Ordered. EDMS 07:20 Thyroid Stimulating Hormone Ordered. EDMS 08:48 Financial registration complete. mm15 08:52 [facility] Payment Agreement was scanned into [employer] and attached to record. mm15 09:56 Consult PFS/PSA/Research Epidemiologist complete. ca 10:47 Acetaminophen Level Reviewed. sd1 10:47 Basic Metabolic Profile Reviewed. sd1 10:47 Complete Blood Count Reviewed. sd1 10:47 Ethyl Alcohol (ethanol) Reviewed. sd1 10:47 Liver Profile Reviewed. sd1 10:47 Salicylate Level Reviewed. sd1 10:47 Drug Eval Toxicology ED Only Reviewed. sd1 10:47 Thyroid Stimulating Hormone Reviewed. sd1 10:47 Recheck Vital Signs, perform reassessment and enter into [employer] ordered. sd1 11:10 REGULAR DIET PLASTIC BOYLE+DIET ordered. EDMS 11:34 PSA/PFS to call Nursing Early Learning Teacher, to enter patient data [place] Safe [place] if patient ca involuntarily admitted or transferred for SI or HI complete. 11:35 Consult PFS/PSA/Research Epidemiologist: Patient's case requires discussion with on-call ca Psychiatrist complete. 05/10 11:59 T-Sheet-- Draft Copy was scanned into [employer] and attached to record. gb 11:59 ECG/EKG was scanned into [employer] and attached to record. gb Administered Medications: 05/09 08:36 Drug: NS 0.9% 1000 ml [sodium chloride 0.9 % intravenous solution] Route: IV; Rate: kcs bolus; Site: right antecubital; 09:57 Follow up: IV Status: Completed infusion; IV Intake: 1000ml kcs Signatures: Dispatcher [employer] EDNataliya Taylor MD MD sd1 Edgar BillRN RN ms2 Delmy Craft, PSA PSA ca Tamie Milan, Reg Reg gb Natividad Lynn RN RN lf1 Courtney Beltre mm15 Mercy Orr RN kcs The chart was reviewed and I authenticate all verbal orders and agree with the evaluation and treatment provided.Attachments: 08:52 [facility] Payment Agreement mm15 05/10 11:59 T-Sheet-- Draft Copy gb 11:59 ECG/EKG Chart Complete MTDD
== END 2016-05-09 13:16 | disposition home or self-care (01) ==
LOC: M ED 06:28
DX: F10.120 Alcohol abuse with intoxication, uncomplicated (principal); I10 Essential (primary) hypertension
CPT/HCPCS: 36415; 80048; 80076; 80306; 84443; 85027; 93005; 96360; 99284; G0480

== ENCOUNTER → 2017-11-01 | Outpatient (REF) | payer OTHER | LOC: M LAB REF 15:44 | DX: J02.9 Acute pharyngitis, unspecified (principal) ==

== ENCOUNTER → 2020-04-16 | Outpatient (CLI) | payer SELFPAY | LOC: M LABSMTC 11:50 | PROVIDERS: ATTEND Pediatrics | DX: Z20.828 Contact with and (suspected) exposure to other viral communicable diseases (principal) ==